=== PATIENT | male | born 1985 | race Two or more races ===

== ENCOUNTER 2018-11-21 21:27 | Emergency (ER) | payer SELFPAY ==
[~2018-11-21] VITALS: Ht 175.3 cm; Wt 86.2 kg
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
[2018-11-21 21:49] VITALS: BP 123/79
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
--- NOTE | 2018-11-21 22:13 | NUR ---
ED Nurse Note: per [facility], pt is out of custody.
--- NOTE | 2018-11-21 22:25 | NUR ---
ED Nurse Note: pt off to CT.
[2018-11-21] MEDS ORDERED: IBUPROFEN600 MG ORAL (23:06)
[2018-11-21 23:08] VITALS: BP 115/76
--- NOTE | 2018-11-21 23:08 | NUR ---
ED Nurse Note: pt cleared to be d/c per ERMD, pt discharge and aftercare instruction provided w/ prescription, pt education done via discussion and handout, pt advised to follow up with pcp or return to ed if changes in condition, pt verbalized understanding and agrees with plan, vss, ambulatory w/ steady gait, left w/ all belongings.
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
== END 2018-11-21 23:08 | disposition home or self-care (01) ==
LOC: EMR 21:59
DX: S00.83XA Contusion of other part of head, initial encounter (principal); Y04.2XXA Assault by strike against or bumped into by another person, initial encounter
CPT/HCPCS: 70486; 99284